=== PATIENT | male | born 1985 | race Caucasian/White ===

== ENCOUNTER 2017-03-01 02:22 | Observation (INO) ==
[2017-03-01] MEDS ORDERED: Haloperidol Lactate 5 MG/ML VIAL IM ONE (02:27)
[2017-03-01] MEDS ORDERED: *HR* LORazepam 2 MG/ML VIAL IM ONE (02:27)
[2017-03-01] MEDS ORDERED: Haloperidol Lactate 5 MG/ML VIAL ONE (02:28)
[2017-03-01] MEDS ORDERED: *HR* LORazepam 2 MG/ML VIAL ONE (02:29)
[2017-03-01 03:19] LABS: Bilirubin,Urine Negative (Negative); Blood,Urine Trace (Negative); Clarity,Urine Clear (Clear); Color,Urine Yellow (Yellow); Glucose,Urine (UA) Normal (Normal); Ketones,Urine Negative (Negative); Leukocyte Esterase,Urine Negative (Negative); Nitrite,Urine Negative (Negative); Protein,Urine Negative (Neg-Trace); Specific Gravity,Urine 1.011 (1.010-1.025); Urobilinogen,Urine Normal (Normal)
[2017-03-01 03:21] LABS: Bacteria,Urine None Seen per hpf (None-Few); Hyaline Casts,Urine None Seen per lpf (None-Few); RBC,Urine 0-3 per hpf (0-3); Squamous Epithelial Cell,Urine Moderate per lpf (None-Few); WBC,Urine 0-3 per hpf (0-3)
[2017-03-01 03:23] LABS: Amphetamine Screen,Urine Positive ng/mL (Cutoff=1000); Barbiturate Screen,Urine Negative ng/mL (Cutoff=200); Benzodiazepines Screen,Urine Negative ng/mL (Cutoff=200); Cannabinoid Screen,Urine Positive ng/mL (Cutoff = 50); Cocaine Screen,Urine Positive ng/mL (Cutoff= 300); Opiate Screen,Urine Negative ng/mL (Cutoff=300); Phencyclidine Screen,Urine Negative ng/mL (Cutoff=25)
--- NOTE | 2017-03-01 04:12 | Emergency Department Note ---
Overdose - MDM Narrative Medical decision making narrative: Drug-induced psychosis - Medical Records Medical records reviewed: Yes I reviewed the patient's medical records. - Lab Data Lab results reviewed: Yes I reviewed the patient's lab results. Result diagrams: 03/01/17 04:25 03/01/17 04:25 Lab Results 03/01/17 03/01/17 03/01/17 Range/Units 02:45 02:45 04:25 WBC 10.2 (4.3-11.1) K/mcL RBC 5.18 (4.19-5.50) M/mcL Hgb 15.2 (12.9-16.9) g/dL Hct 45.6 (37.5-50.1) % MCV 88.0 (83.0-100.0) fL MCH 29.3 (28.0-33.3) pg MCHC 33.3 (31.6-35.5) g/dL RDW 12.6 (11.5-14.5) % Plt Count 231 (140-400) K/mcL MPV 9.9 (9.4-12.4) fL Immature Gran % 0.2 (0-4) % Seg Neutrophils % 58.5 % Lymphocytes % 24.6 % Monocytes % 13.3 % Eosinophils % 2.8 % Basophils % 0.6 % Neutrophils # 6.0 (1.6-8.9) K/mcL Lymphocytes # 2.5 (0.6-4.6) K/mcL Monocytes # 1.4 H (0.0-1.3) K/mcL Eosinophils # 0.3 (0.0-0.6) K/mcL Basophils # 0.1 (0.0-0.2) K/mcL Sodium (136-145) mEq/L Potassium (3.5-4.5) mEq/L Chloride (98-109) mEq/L Carbon Dioxide (19-29) mEq/L BUN (8-26) mg/dL Creatinine (0.72-1.25) mg/dL Est GFR ( Amer) (> 60) Est GFR (Non-Af Amer) (> 60) BUN/Creatinine Ratio (6-26) Glucose (70-99) mg/dL Calculated Osmolality (280-300) Calcium (8.6-10.8) mg/dL Creatine Kinase (30-200) Units/L Urine Color Yellow (Yellow) Urine Clarity Clear (Clear) Urine pH 6.0 (5.0-8.0) pH Units Ur Specific [place] 1.011 (1.010-1.025) Urine Protein Negative (Neg-Trace) mg/dL Urine Glucose (UA) Normal (Normal) mg/dL Urine Ketones Negative (Negative) mg/dL Urine Blood Trace H (Negative) Urine Nitrite Negative (Negative) Urine Bilirubin Negative (Negative) Urine Urobilinogen Normal (Normal) mg/dL Ur Leukocyte Esterase Negative (Negative) Urine Microscopic RBC 0-3 (0-3) per hpf Urine Microscopic WBC 0-3 (0-3) per hpf Ur Squamous Epith Cells Moderate H (None-Few) per lpf Urine Bacteria None Seen (None-Few) per hpf Hyaline Casts None Seen (None-Few) per lpf Salicylates (15-30) mg/dL Urine Opiates Screen Negative (Flfjad=150) ng/mL Acetaminophen (10-30) mcg/mL Ur Barbiturates Screen Negative (Urmfsv=171) ng/mL Ur Phencyclidine Scrn Negative (Cutoff=25) ng/mL Ur Amphetamines Screen Positive H (Peueso=6617) ng/mL U Benzodiazepines Scrn Negative (Duriil=870) ng/mL Urine Cocaine Screen Positive H (Cutoff= 300) ng/mL U Marijuana (THC) Screen Positive H (Cutoff = 50) ng/mL Ethyl Alcohol (0-10) mg/dL 03/01/17 Range/Units 04:25 WBC (4.3-11.1) K/mcL RBC (4.19-5.50) M/mcL Hgb (12.9-16.9) g/dL Hct (37.5-50.1) % MCV (83.0-100.0) fL MCH (28.0-33.3) pg MCHC (31.6-35.5) g/dL RDW (11.5-14.5) % Plt Count (140-400) K/mcL MPV (9.4-12.4) fL Immature Gran % (0-4) % Seg Neutrophils % % Lymphocytes % % Monocytes % % Eosinophils % % Basophils % % Neutrophils # (1.6-8.9) K/mcL Lymphocytes # (0.6-4.6) K/mcL Monocytes # (0.0-1.3) K/mcL Eosinophils # (0.0-0.6) K/mcL Basophils # (0.0-0.2) K/mcL Sodium 139 (136-145) mEq/L Potassium 4.3 (3.5-4.5) mEq/L Chloride 105 (98-109) mEq/L Carbon Dioxide 24 (19-29) mEq/L BUN 14 (8-26) mg/dL Creatinine 0.88 (0.72-1.25) mg/dL Est GFR ( Amer) > 60 (> 60) Est GFR (Non-Af Amer) > 60 (> 60) BUN/Creatinine Ratio 16 (6-26) Glucose 82 (70-99) mg/dL Calculated Osmolality 288 (280-300) Calcium 9.6 (8.6-10.8) mg/dL Creatine Kinase 644 H (30-200) Units/L Urine Color (Yellow) Urine Clarity (Clear) Urine pH (5.0-8.0) pH Units Ur Specific [place] (1.010-1.025) Urine Protein (Neg-Trace) mg/dL Urine Glucose (UA) (Normal) mg/dL Urine Ketones (Negative) mg/dL Urine Blood (Negative) Urine Nitrite (Negative) Urine Bilirubin (Negative) Urine Urobilinogen (Normal) mg/dL Ur Leukocyte Esterase (Negative) Urine Microscopic RBC (0-3) per hpf Urine Microscopic WBC (0-3) per hpf Ur Squamous Epith Cells (None-Few) per lpf Urine Bacteria (None-Few) per hpf Hyaline Casts (None-Few) per lpf Salicylates < 5.0 L (15-30) mg/dL Urine Opiates Screen (Yigamc=575) ng/mL Acetaminophen < 1.0 L (10-30) mcg/mL Ur Barbiturates Screen (Wpknhu=086) ng/mL Ur Phencyclidine Scrn (Cutoff=25) ng/mL Ur Amphetamines Screen (Jawpck=6296) ng/mL U Benzodiazepines Scrn (Pacawv=780) ng/mL Urine Cocaine Screen (Cutoff= 300) ng/mL U Marijuana (THC) Screen (Cutoff = 50) ng/mL Ethyl Alcohol 80 H (0-10) mg/dL Overdose HPI - General Chief Complaint: ED General Medical Stated Complaint: DRUG USE Time Seen by Provider: 03/01/17 02:27 Source: EMS Mode of arrival: EMS Limitations: altered mental status Nursing Notes Reviewed: Yes Vital Signs Reviewed: Yes - History of Present Illness HPI Narrative: Patient presents emergency room and discussed transported by EMS for acute intoxication on methamphetamine. Patient is altered. No complications during transit except for patient being combative Onset (ago): Just CIRCULATION REPRESENTATIVE Intent: unknown How Overdose Was Discovered: other (Found by police) Treatments Prior to Arrival: monitor - Related Data Home Medications Medication Instructions Recorded Confirmed Vitamins. 12/16/16 Previous Rx's Medication Instructions Recorded Fexofenadine HCl 180 mg PO DAILY PRN #30 tablet 12/16/16 Ibuprofen [Motrin] 800 mg PO Q6-8H PRN #30 tablet 12/16/16 Ondansetron [Zofran ODT] 8 mg SL TID PRN #9 tab.rapdis 12/16/16 Oseltamivir [Tamiflu] 75 mg PO BID #10 capsule 12/16/16 Promethazine/Dextromethorphan 5 ml PO Q4H PRN #120 ml 12/16/16 [Promethazine-Dm Syrup] Allergies Allergy/AdvReac Type Severity Reaction Status Date / Time No Known Allergies Allergy Verified 07/12/15 02:55 Limitations: ROS unobtainable due to patients medical condition Past Medical History - Past Medical History Attestation: Yes The following information was validated with the patient. Source: unable to obtain Medical history: Reports: other Psychiatric history: Reports: no psych history - Social History Smoking Status: Current every day smoker Smokeless Tobacco Status: No Alcohol use: Reports: heavy, recent Drug use: Reports: unknown Physical Exam - General Limitations: altered mental status General appearance: alert, appears intoxicated - Head Head exam: atraumatic, normocephalic, normal inspection - Eye Eye exam: Present: normal appearance, PERRL, EOMI - ENT ENT exam: normal exam, normal oropharynx, mucous membranes moist - Chest Chest inspection: Present: normal inspection, symmetric chest wall rise. Absent : tenderness - Respiratory Respiratory exam: Present: normal lung sounds bilaterally - Cardiovascular Cardiovascular exam: Present: tachycardia - Abdominal Exam Abdominal exam: Present: soft, Non-Tender, normal bowel sounds. Absent: tenderness, distention, guarding, rebound, rigidity - Extremities Exam Extremities exam: Present: normal inspection, other (Interval areas of abrasion as well as previous puncture sites of needle use) - Back Exam Back exam: Present: normal inspection - Neurological Exam Neurological exam: Present: alert, CN II-XII intact. Absent: oriented X3 - Psychiatric Psychiatric exam: Present: agitated - Skin Skin exam: Present: warm, dry, intact, normal color Course Course Narrative: Patient seen and examined with ultrasound arrival. See history of present illness. 31-year-old male presents emergency room in custody of the police as well as transported by EMS secondary to agitation. Patient is acutely intoxicated appears in methamphetamine. Patient is not oriented to time or place he speaking about crazy things are going on the wound. No other injuries visualized this time. He says he has not slept in approximately 4 days. Patient was given Haldol and Ativan on presentation for protection of the staff while we get him under control. He is kicking and flailing around. He is in handcuffs on presentation. Officers aided in applying the soft restraints. No other signs of injury issue. Patient to have physical exam completed once he is restrained appropriately and clothing is removed. The psychiatric workup started at this time including urine drug screen ethanol salicylates and acetaminophen. His nausea medication and basic laboratory workup to be completed. Otherwise patient is resting comfortably after medications provided. No other acute distress or issues - Reevaluation(s) Reevaluation #1: Patient found to have elevated CPK. 2 L of fluid order down here. The rest of his labs are unremarkable except for grossly positive urine drug screen. Patient is still fidgeting in the bed but does not seem to be combative argumentative or out of control this time. He was provided with 20 mg of Geodon intramuscularly. We will continue to augment with Ativan by IV and IV access is obtained. Patient was discussed with the hospitalist Dr. Thomas. We reviewed the medical history presentation symptoms and no other recommendations at this time. Patient stable. No reason for medical intubation this time he is maintaining his airway without complication he is tolerating medical intervention is 0.4 point restraints are placed for safety and stabilization of his IV. Safety of staff to be protected at this time as well. Vital signs stable to monitor admission process is completed Time: 05:33 Vital Signs Temperature 99.0 F 03/01/17 02:24 Pulse Rate 108 03/01/17 02:24 Respiratory Rate 18 04/16/17 02:24 Blood Pressure 136/98 04/16/17 02:24 O2 Sat by Pulse Oximetry 95 03/01/17 02:24 Temperature 99.0 F 03/01/17 02:24 Pulse Rate 91 03/01/17 05:30 Respiratory Rate 18 03/01/17 05:30 Blood Pressure 148/74 03/01/17 05:30 O2 Sat by Pulse Oximetry 95 03/01/17 04:30 Oxygen Delivery Oxygen Delivery Room Air Disposition Clinical Impression: Elevated CPK Drug-induced psychotic disorder Qualifiers: Complication of substance-induced condition: with delusions Qualified Code(s): F19.950 - Other psychoactive substance use, unspecified with psychoactive substance-induced psychotic disorder with delusions Overdose Qualifiers: Encounter type: initial encounter Injury intent: undetermined intent Qualified Code(s): T50.904A - Poisoning by unspecified drugs, medicaments and biological substances, undetermined, initial encounter Disposition: Admitted As Inpatient Condition: Fair Referrals: NO,PCP [Primary Care Provider] - Forms: Work/School Release, ED Satisfaction Letter Time of Disposition: 05:22 Attestation Statement - Attestation Attestation: I, Kumar Strong MD, personally evaluated this patient and discussed their management with the resident physician. I reviewed the resident's note and agree with the documented findings, medical decision making, and plan of care. 31-year-old male presents to the emergency department for altered mental status and combativeness. Patient apparently admitted to using meth. He was apparently found on the road with some abrasions and contusions. On arrival here the patient is alert but is very combative and confused and disoriented. Unable to provide any history or review of systems. On examination patient is a well-developed well-nourished male in no acute distress. He is alert but confused and disoriented. Strong odor of alcohol on his breath. Multiple superficial abrasions. Breast sounds are clear and equal bilaterally. Heart regular and tachycardic. Abdomen soft with normal bowel sounds. No distention. No obvious tenderness. Labs reviewed. The hospitalist, Dr. Thomas, was consulted and accepted admission of the patient.
[2017-03-01] MEDS: 0.9 % Sodium Chloride 1,000 ML IVC ONE ×2 (04:22→05:19)
[2017-03-01] MEDS ORDERED: Ziprasidone injection 20 MG/ML VIAL IM ONE ×2 (04:29→04:30)
[2017-03-01 04:35] LABS: Basophils # 0.1 K/mcL (0.0-0.2); Basophils % 0.6 %; Eosinophils # 0.3 K/mcL (0.0-0.6); Eosinophils % 2.8 %; Hematocrit 45.6 % (37.5-50.1); Hemoglobin 15.2 g/dL (12.9-16.9); Immature Granulocytes % 0.2 % (0-4); Lymphocytes # 2.5 K/mcL (0.6-4.6); Lymphocytes % 24.6 %; Mean Corpuscular HGB Conc 33.3 g/dL (31.6-35.5); Mean Corpuscular Hemoglobin 29.3 pg (28.0-33.3); Mean Platelet Volume 9.9 fL (9.4-12.4); Monocytes # 1.4 K/mcL (0.0-1.3); Monocytes % 13.3 %; Platelet Count 231 K/mcL (140-400); Red Blood Count 5.18 M/mcL (4.19-5.50); Red Cell Distribution Width 12.6 % (11.5-14.5); Segmented Neutrophils % 58.5 %
[2017-03-01 04:50] LABS: BUN/Creatinine Ratio 16 (6-26); Blood Urea Nitrogen 14 mg/dL (8-26); Calcium 9.6 mg/dL (8.6-10.8); Carbon Dioxide 24 mEq/L (19-29); Chloride 105 mEq/L (98-109); Ethanol 80 mg/dL (0-10); Glucose 82 mg/dL (70-99); Osmolality,Calculated 288 (280-300); Potassium 4.3 mEq/L (3.5-4.5); Sodium 139 mEq/L (136-145); eGFR For African Americans > 60 (> 60); eGFR For Non-African Americans > 60 (> 60)
[2017-03-01 04:52] LABS: Acetaminophen < 1.0 mcg/mL (10-30); Salicylate < 5.0 mg/dL (15-30)
[2017-03-01 05:12] LABS: Creatine Kinase 644 Units/L (30-200)
[2017-03-01] MEDS ORDERED: 0.9 % Sodium Chloride 1,000 ML IVC ONE (05:16)
[2017-03-01] MEDS ORDERED: *HR* LORazepam 2 MG/ML VIAL IVP ONE (05:33)
[2017-03-01] MEDS ORDERED: Ondansetron 4 MG/2 ML VIAL IVP PRN (05:50)
[2017-03-01] MEDS ORDERED: Naloxone 0.4 MG/ML INJ IVP PRN (05:50)
[2017-03-01] MEDS ORDERED: Acetaminophen 325 MG TABLET PO PRN (05:50)
[2017-03-01] MEDS ORDERED: Haloperidol Lactate 5 MG/ML VIAL IVP PRN (05:52)
[2017-03-01] MEDS ORDERED: *HR* LORazepam 2 MG/ML VIAL IVP PRN (05:52)
--- NOTE | 2017-03-01 05:58 | Internal Med History&Physical ---
Date of Encounter: 03/01/17 Time of Encounter: 05:55 Assessment and Plan (1) Drug-induced psychotic disorder Current visit: Yes Status: Acute Acute intoxication of multiple substances including cocaine, methamphetamines, marijuana and alcohol Continue 4. point restraints Ativan IV as needed, Haldol IV as needed Order CT scan of the head Consider psychiatric consultded At the ammonia level and liver function tests Qualifiers: Complication of substance-induced condition: with delusions Qualified Code( s): F19.950 - Other psychoactive substance use, unspecified with psychoactive substance-induced psychotic disorder with delusions (2) Tobacco abuse Current visit: Yes Status: Acute Will need counseling for smoking cessation (3) Hepatitis C Current visit: Yes Status: Acute Needs to be treated as an outpatient Qualifiers: Viral hepatitis chronicity: carrier Qualified Code(s): B18.2 - Chronic viral hepatitis C (4) Elevated CPK Current visit: Yes Status: Acute Worrisome for acute rhabdomyolysis Monitor CK, continue aggressive hydration with normal saline at 200 mL/h (5) Overdose Current visit: Yes Status: Acute Protonix 40 a prophylaxis, sequential compression devices for the deep reflexes. Patient will be admitted for observation, his status may be switched to inpatient if needed. Full code. Time spent on this admission 40 minutes. His high risk due to acute intoxication of multiple substances Qualifiers: Encounter type: initial encounter Injury intent: undetermined intent Qualified Code(s): T50.904A - Poisoning by unspecified drugs, medicaments and biological substances, undetermined, initial encounter Internal Medicine - H&P: HPI Chief complaint: AMS Admitted From: Emergency Dept History of present illness: Mr. Dodd is a 31 year old male with a past medical history of hepatitis C, polysubstance abuse and tobacco use who was brought by the EMS as he was found on the street completely incoherent. According to prior records he has signed AGAINST MEDICAL ADVICE from the ER in the past. This time he is completely incoherent, required to be in 4 point restraint as she was very agitated. He received Geodon, Haldol and Ativan at the emergency room. His urine tox screen is positive for amphetamines, cocaine, marijuana and his alcohol level was 80. The patient is not able to give any history of the moment, he was receiving IV fluids at the emergency room CK is 644. The patient is oriented only in person , his heart rate is 108. No CT scan of the head has been performed yet. Unable to provide any history but according to the ER staff he has not slept for 4 days and has been very difficult to control. Past Med Surg Social Fam HX - Past Medical History Medical history: other (Hepatitis C, tobacco use and polysubstance abuse) Psychiatric history: no psych history - Past Surgical History Surgical History: no surgical history (Unknown surgical history) - Social History Smoking Status: Current every day smoker Smokeless Tobacco Status: No Alcohol use: heavy, recent Drug use: cocaine, marijuana, methamphetamine - Additional Family History Additional family history: Unknown family history Internal Medicine - H&P: Meds Fexofenadine HCl 180 mg PO DAILY PRN #30 tablet 12/16/16 [Rx] Ibuprofen [Motrin] 800 mg PO Q6-8H PRN #30 tablet 12/16/16 [Rx] Ondansetron [Zofran ODT] 8 mg SL TID PRN #9 tab.rapdis 12/16/16 [Rx] Oseltamivir [Tamiflu] 75 mg PO BID #10 capsule 12/16/16 [Rx] Promethazine/Dextromethorphan [Promethazine-Dm Syrup] 5 ml PO Q4H PRN #120 ml [Rx] Vitamins. 12/16/16 [History] Allergies No Known Allergies Allergy (Verified 07/12/15 02:55) All Systems PM: A 10-system review of systems was performed and is negative for pertinent findings except as documented above in the HPI. Review of systems: Unable to be completed due to the patient's altered mental status - Constitutional Vitals: Temp Pulse Resp BP Pulse Ox 99.0 F 91 18 148/74 95 03/01/17 02:24 03/01/17 05:30 03/01/17 05:30 03/01/17 05:30 03/01/17 04:30 General appearance: Present: A&O X 1 - Head Head exam: Present: atraumatic, normocephalic - Eye Eye exam: Present: PERRL, conjuntiva pink, sclera anicteric Pupils: Present: PERRL - Neck Neck exam general surgery: Present: supple, trachea midline. Absent: lymphadenopathy - Respiratory Respiratory exam: Present: decreased breath sounds, CTAB. Absent: accessory muscle use, rales, rhonchi, wheezes - Cardiovascular Cardiovascular exam: Present: RRR, +S1, +S2. Absent: diastolic murmur, gallop, rubs, systolic murmur - GI/Abdominal GI/Abdominal exam: Present: distended, normal bowel sounds, soft, no peritoneal signs. Absent: tenderness - Extremities Exam Extremities exam: Present: warm, radial pulses palpable and symetrical. Absent : calf tenderness, cyanotic, pedal edema - Neurological Exam Neurological exam: Present: CN II-XII intact, no focal deficits. Absent: oriented X3, pronater drift, facial droop, speech deficit - Skin Skin exam: Present: dry, intact Internal Med - H&P Results - Labs CBC & Chem 7: 03/01/17 04:25 03/01/17 04:25 Labs: Short CBC 03/01/17 Range/Units 04:25 WBC 10.2 (4.3-11.1) K/mcL Hgb 15.2 (12.9-16.9) g/dL Hct 45.6 (37.5-50.1) % Plt Count 231 (140-400) K/mcL Neutrophils # 6.0 (1.6-8.9) K/mcL BMP 03/01/17 04:25 Sodium 139 Potassium 4.3 Chloride 105 Carbon Dioxide 24 BUN 14 Creatinine 0.88 Glucose 82 Calcium 9.6 Urine 03/01/17 Range/Units 02:45 Urine Color Yellow (Yellow) Urine Clarity Clear (Clear) Urine pH 6.0 (5.0-8.0) pH Units Ur Specific [place] 1.011 (1.010-1.025) Urine Protein Negative (Neg-Trace) mg/dL Urine Glucose (UA) Normal (Normal) mg/dL
[2017-03-01 07:28] LABS: Alanine Aminotransferase 517 Units/L (0-55); Albumin 3.8 g/dL (3.5-5.0); Albumin/Globulin Ratio 1.1 (1.1-2.2); Alkaline Phosphatase 152 Units/L (38-126); Aspartate Amino Transferase 242 Units/L (5-34); Bilirubin,Direct 0.6 mg/dL (0.0-0.5); Bilirubin,Indirect 0.9 mg/dL (0.0-1.2); Bilirubin,Total 1.5 mg/dL (0.2-1.2); Globulin 3.6 g/dL (2.4-3.5); Total Protein 7.4 g/dL (6.0-8.3)
[2017-03-01] MEDS ORDERED: Pantoprazole 40 MG VIAL IVP SCH (09:00)
[2017-03-01] MEDS: 0.9 % Sodium Chloride 1,000 ML IVC SCH ×2 (10:23→13:50)
[2017-03-01 10:37] VITALS: BP 100/70
--- NOTE | 2017-03-01 13:43 | Discharge Summary ---
Date of Encounter: 03/02/17 Time of Encounter: 13:15 - Discharge Diagnosis (1) Drug-induced psychotic disorder Priority: Primary Status: Acute Qualifiers: Complication of substance-induced condition: with delusions Qualified Code( s): F19.950 - Other psychoactive substance use, unspecified with psychoactive substance-induced psychotic disorder with delusions (2) Elevated CPK Priority: Secondary Status: Acute (3) Overdose Priority: Secondary Status: Acute Qualifiers: Encounter type: initial encounter Injury intent: undetermined intent Qualified Code(s): T50.904A - Poisoning by unspecified drugs, medicaments and biological substances, undetermined, initial encounter (4) Tobacco abuse Priority: Secondary Status: Acute (5) Hepatitis C Priority: Secondary Status: Acute Qualifiers: Viral hepatitis chronicity: carrier Qualified Code(s): B18.2 - Chronic viral hepatitis C - Discharge Medications Home Medications: Buprenorphine HCl/Naloxone HCl [Suboxone 8 mg-2 mg Sl Film] 2 each SL DAILY [History] Allergies/Adverse Reactions: Allergies No Known Allergies Allergy (Verified 07/12/15 02:55) Date of admission: 03/01/17 09:15 Primary care physician: PCP NO Discharging clinician: Kwasi Cardoso Anticipated date of discharge: 03/01/17 - Patient Status Disposition: Home, Self-Care Condition: Fair Functional capacity at discharge: independent ambulation Overall status at discharge: patient is progressing back to baseline - Discharge Instructions Follow Up With: NO,PCP [Primary Care Provider] - Additional Instructions: Increase oral fluids intake - Diet and Activity Activity: increase activity as tolerated Diet: regular diet Hospital course: Mr. Dodd is a 31 year old male male patient who was admitted with drug induced psychotic disorder. He had been severely agitated in the ER and required multiple medications and restraints to calm him. He was then monitored in the ICU. He slept through most of the day and refused all care. On presentation he had slight elevation in his CPK and liver enzymes likely related to alcohol abuse and drug use. He refused further received IV fluids in the ER but since then he has refused further care and even blood draws. He slept all through his stay in the hospital and then after waking up in the evening refused all care and left AGAINST MEDICAL ADVICE. - Time Spent with Patient Total time spent providing and/or coordinating discharge services: Less than 30 minutes - Constitutional Vitals: Temp Pulse Resp BP Pulse Ox 99.0 F 62 14 100/70 96 03/01/17 02:24 03/01/17 13:00 03/01/17 13:00 03/01/17 10:36 03/01/17 13:00 Exam: Patient is currently somnolent and not cooperative - Attending Attestation This document has been at least partially created by [employer] HR recognition technology by Dr. Cardoso. Errors in grammar, wording or other phrases may exist. If errors are found after the documentation is signed, they will be addressed individually in the addendum section of this document when appropriate.
== END 2017-03-01 18:14 | disposition home or self-care (01) ==
LOC: EMEROO 02:22 → ICNU 02:22 → SUATTDRO 09:15 → ICNU 10:25
PROVIDERS: ADMIT Internal Medicine; ATTEND Internal Medicine